=== PATIENT | female | born 1980 | race Caucasian/White ===

== ENCOUNTER 2017-01-27 14:09 | Emergency (ER) | payer OTHER ==
[~2017-01-27] VITALS: Ht 157.5 cm; Wt 78.1 kg
[2017-01-27] MEDS ORDERED: QUET200T PO (14:37)
[2017-01-27] MEDS ORDERED: ASPI-989 PO (14:37)
[2017-01-27] MEDS ORDERED: IBUPROFEN 600 MG TABLET PO ONE (16:30)
[2017-01-27 17:45] VITALS: BP 128/97
== END 2017-01-27 18:02 | disposition home or self-care (01) ==
LOC: EMS 14:11
DX: S82.891G Other fracture of right lower leg, subsequent encounter for closed fracture with delayed healing (principal); I10 Essential (primary) hypertension; Z79.82 Long term (current) use of aspirin; X58.XXXD Exposure to other specified factors, subsequent encounter
CPT/HCPCS: 29515; 93925; 99284